=== PATIENT | male | born 1935 | race Caucasian/White ===

== ENCOUNTER → 2017-01-02 | Outpatient (CLI) | payer OTHER ==
[~2017-01-02] MED LIST: 24 HOUR ALLER15.8 ML; ALBUTEROL17 GM INH; ALEVE220 M1 PO; ALPRAZOLAM ER1 MG PO; ALPRAZOLAM PO; AMLODIPINE-BEN1 EAC5 PO; AMLODIPINE-BEN1 EACH PO; AMLODIPINE-BENA1 CAP PO; ASPIRIN PO; ASPIRIN81 M1 PO; ASPIRIN81 M2 PO; ATENOLOL PO; ATENOLOL25 MG PO; AZOR 10/40 MG T1 TAB PO; B-121000 MC1 PO; BENADRYL PO; BENAZEPRIL PO; BENZONATATE PO; CARVEDILOL12.5 MG PO; CLOPIDOGREL75 MG PO; COREG12.5 MG PO; CRESTOR5 MG; DOCUSATE SODIU100 MG PO; ECOTRIN81 M1 PO; ELIQUIS5 MG PO; ENDOCET 5-3251 EACH PO; FISH OIL EC 1,1 EACH PO; FISH OIL300 MG PO; FLEXERIL10 MG PO; FUROSEMIDE40 MG PO; GLUCOTROL PO; GLYBURIDE PO; GLYBURIDE2.5 M1 PO; GLYBURIDE2.5 MG PO; HUMIBID L.1 TAB.SR . PO; IMDUR PO; IMDUR-ER60 MG PO; IMDUR120 MG PO; IMDUR30 MG PO; ISMO20 MG PO; ISOSORBIDE MON120 M1; ISOSORBIDE MON120 M1 PO; ISOSORBIDE MONO30 M1 PO; K-DUR20 ME1 PO; KCL PO; KLOR-CON PO; LASIX PO; LEVAQUIN PO; LEVAQUIN750 M1 PO; LIPITOR PO; LIPITOR40 MG PO; LISINOPRIL10 MG PO; LO-DOSE ASPIRIN81 M1 PO; LORTAB 7.5-3251 EACH PO; LOTENSIN PO; LOTREL 10-40 M1 EACH PO; LOTREL 10/40 MG1 CAP PO; LOTREL 5-20 MG1 CAP PO; LOTREL 5/20 MG1 CAP PO; METOPROLOL TAR25 MG PO; MICRONASE2.5 MG PO; MORGIDOX100 MG PO; NEURONTIN100 MG PO; NEURONTIN300 MG PO; NITROGLYCERIN0.4 MG SL; NITROGYLCERIN SUBLINGUAL; NITROSTAT0.4 MG SL; NORCO 10-325 TA1 TAB PO; OMEPRAZOLE40 M1 PO; OMNICEF PO; OMNICEF300 MG PO; OXYCODONE HCL5 M1 PO; OXYCODONE-APAP1 T11 PO; PATIENT'S PHARMACY; PLAVIX PO; POTASSIUM CHLO20 ME1 PO; PREDNISONE PO; PRILOSEC PO; PROAIR RESPICL90 MCG INH; STIOLTO RESPIMAT4 GM; SYMBICORT INH; TENORMIN25 M1 PO; TENORMIN25 MG PO; TENORMIN50 MG PO; TRAMADOL HCL50 M2 PO; TRENTAL400 MG PO; VFEND PO; VITAMIN C500 M1 PO; VITAMIN D31000 UNI1 PO; XANAX1 MG PO; ZYVOX600 MG PO
--- NOTE | ~2017-01-02 | CT57 ---
[facility] A Service of [facility] & [facility] RADIOLOGY TEXT RESULTS PATIENT: DYLAN RICHARDSON LOCATION: [facility] : 39 UNIT #: [id number] AGE: [address]: Bronson Gr MD SEX: M ORDER DR: [id number] [facility] [address] [place], [place] [address] [id number] O MR#: [id number] [facility] #: [id number] NAME: DYLAN RICHARDSON. : 1935 SEX: M STUDY DATE/TIME: 01/02/2017 13:40 UNIT: [facility] ROOM: STUDY DESCRIPTION: CT Chest Wo Cont Attending Physician: Solomon Gr M.D. Referring Physician: Solomon Gr M.D. Ordering Physician: Solomon Gr M.D. Primary Care Physician: Kelvin Oswald M.D. MEDICAL IMAGING REPORT This report is preliminary unless electronic signature is present EXAM CT of the chest without contrast. INDICATION Follow up pulmonary nodule. TECHNIQUE CT scan of the chest was performed without contrast. Coronal and sagittal reformatted images were obtained. This CT exam was performed with one or more of the following radiation dose reduction techniques: automatic exposure control, adjustment of mA and/or kV according to patient size, and iterative reconstruction. COMPARISON Comparison is made with PET/CT from 09/19/[address] from 08/28/16. FINDINGS Background emphysema. The previously noted 2.2 cm nodule in the right upper lobe is nearly completely resolved and now measures only about 6 mm at this time. Stable 1.6 cm nodule adjacent to the pleural surface in the posterior right lower lobe. Stable atelectasis/scarring elsewhere within the lung bases. No new nodules. Stable mildly prominent mediastinal lymph nodes some with calcifications. Coronary artery calcification. Prior sternotomy and CABG. No pleural effusion. Limited imaging of the upper abdomen demonstrates a cholecystectomy. Bone windows demonstrate degenerative changes and osteopenia. IMPRESSION 1. The previous nodule in the right upper lobe is nearly completely resolved now measuring only 6 mm. 2. Stable 1.6 cm nodular density in the right lower lobe adjacent to the pleural surface. This was negative on recent PET/CT. However, I [facility] A Service of [facility] & [facility] RADIOLOGY TEXT RESULTS PATIENT: DYLAN RICHARDSON LOCATION: [facility] : 39 UNIT #: [id number] AGE: [address]: Bronson Gr MD SEX: M ORDER DR: would suggest continued followup to document stability of this nodule or resolution. 3. No new nodules. Dictated by... Travis Parra M.D. THIS IS AN ELECTRONICALLY VERIFIED REPORT Travis Parra M.D. at 01/03/2017 7:14 AM SOMMER/dana TD: 01/02/2017 20:36 JOB #: [id number] MEDICAL IMAGING REPORT Page 1 of 1 COPY
== END | disposition home or self-care (01) ==
LOC: CCAT 12:39
DX: R91.1 Solitary pulmonary nodule (principal); J30.9 Allergic rhinitis, unspecified; J41.0 Simple chronic bronchitis; I21.4 Non-ST elevation (NSTEMI) myocardial infarction; J98.4 Other disorders of lung
CPT/HCPCS: 71250